=== PATIENT | male | born 1985 | race Hispanic/Latino ===

== ENCOUNTER 2017-11-09 16:43 | Emergency (ER) | payer BC, SELFPAY ==
[2017-11-09] MEDS ORDERED: Albuterol Sulfate 2.5 mg/3 ml Neb ONE (17:40)
[2017-11-09] MEDS ORDERED: Albuterol Sulfate 2.5 mg/0.5 ml Neb ONE (17:40)
[2017-11-09] MEDS ORDERED: Acetaminophen 500 MG TAB ONE (18:15)
[2017-11-09 19:01] LABS: #Eosinphils 0.1 thou/uL (0.0-0.7); #Lymphocytes 1.4 thou/uL (1.20-3.40); #Monocytes 0.9 thou/uL (0.11-0.59); #Neutrophils 5.8 thou/uL (1.40-6.50); %Basophils 0.5 % (0.0-1.0); %Eosinophils 0.7 % (0.0-10.0); %Lymphocytes 16.7 % (21.0-51.0); %Monocytes 10.9 % (0.0-10.0); %Neutrophils 71.3 % (42.0-75.0); Hemoglobin 18.8 g/dL (14.0-18.0); Mean Corpuscular HGB CONC 34.5 g/dL (32.0-36.0); Mean Corpuscular Hemoglobin 34.1 pg (27.0-31.0); Mean Platelet Volume 6.9 fL (7.4-10.4); Platelet Count 108 thou/uL (130-400); Red Blood Cell (RBC) Count 5.52 mill/uL (4.70-6.10); White Blood Cell (WBC) Count 8.1 thou/uL (4.8-10.8)
--- NOTE | 2017-11-09 19:03 | RAD ---
AP VIEW OF THE CHEST 11/09/17 INDICATION: Fever, cough, bodyaches for one week. IMPRESSION: No focal consolidation demonstrated. COMMENTS: The lungs are clear. The cardiomediastinal silhouette is within normal limits. No acute osseous abnor mality is evident. POS: [id number]
[2017-11-09 19:11] LABS: ALT (SGPT) 69 U/L (8-55); AST (SGOT) 136 U/L (5-34); Albumin 3.8 g/dL (3.5-5.0); Alkaline Phosphatase 70 U/L (40-150); Anion Gap 19 mmol/L (10-20); BUN (Urea Nitrogen) 6 mg/dL (8.9-20.6); Bilirubin, Total 1.7 mg/dL (0.2-1.2); Calc. Creatinine Clearance 0 mL/min (70-130); Calcium 8.2 mg/dL (7.8-10.44); Carbon Dioxide 21 mmol/L (22-29); Chloride 95 mmol/L (98-107); Estimated GFR-MDRD 77; Globulin 3.8 g/dL (2.4-3.5); Glucose 173 mg/dL (70-105); Protein, Total 7.6 g/dL (6.0-8.3); Sodium 132 mmol/L (136-145)
[2017-11-09] MEDS ORDERED: Losartan Potassium 25 MG TAB PO SCH (19:15)
[2017-11-09 19:23] LABS: Band 34 % (5-11); Lymphocytes 9 % (21-51); MDiff Complete? YES; Metamyelocyte 1 % (0-0); Monocytes 4 % (0-10); Neutrophil 45 % (42-75); PLT Morphology Comment Appears Decreased; Polychromasia SLIGHT = 2-3 cells (100X) (0-2/hpf); Reactive Lymphocytes 6 % (0-10)
== END 2017-11-09 19:10 | disposition home or self-care (01) ==
LOC: ERS 16:43
DX: J45.901 Unspecified asthma with (acute) exacerbation (principal); J11.1 Influenza due to unidentified influenza virus with other respiratory manifestations; I10 Essential (primary) hypertension; K21.9 Gastro-esophageal reflux disease without esophagitis; F17.210 Nicotine dependence, cigarettes, uncomplicated
CPT/HCPCS: 36415; 71010; 80053; 85025; 99406; J7611